=== PATIENT | female | born 1970 | race Two or more races ===

== ENCOUNTER 2018-02-01 04:09 | Emergency (ER) | payer OTHER ==
[~2018-02-01] VITALS: Ht 157.5 cm; Wt 66.4 kg
[2018-02-01] MEDS ORDERED: KETOROLAC 30 MG/1 ML IM ONE (05:00)
[2018-02-01] MEDS ORDERED: KETOROLAC 30 MG/1 ML ONE (05:13)
[2018-02-01 05:14] LABS: BASOPHILS # (AUTO) 0.02 x10^3/uL (0-0.1); BASOPHILS % (AUTO) 0 % (0-1); EOSINOPHILS # (AUTO) 0.01 x10^3/uL (0-0.4); EOSINOPHILS % (AUTO) 0 % (1-7); LYMPHOCYTES # (AUTO) 2.25 x10^3/uL (1-3.4); LYMPHOCYTES % (AUTO) 15 % (22-44); MD NO; MEAN CORPUSCULAR HEMOGLOBIN 32.9 pg (27.0-34.8); MEAN CORPUSCULAR HGB CONC 34.4 g/dL (32.4-35.8); MEAN CORPUSCULAR VOLUME 95.7 fL (80-100); MEAN PLATELET VOLUME 7.9 fL (7.4-10.4); MONOCYTES # (AUTO) 0.15 x10^3/uL (0.2-0.8); MONOCYTES % (AUTO) 1 % (2-9); NEUTROPHILS # (AUTO) 12.52 x10^3/uL (1.8-6.8); NEUTROPHILS % (AUTO) 84 % (42-75); PLATELET COUNT 235 x10^3/uL (130-400); RED BLOOD COUNT 4.78 x10^6/uL (3.82-5.3); RED CELL DISTRIBUTION WIDTH 13.7 % (9.6-15.2)
[2018-02-01 05:24] LABS: ALANINE AMINOTRANSFERASE 89 U/L (12-78); ALBUMIN 3.3 g/dL (3.4-5.0); ANION GAP 9 mmol/L (5-15); CALCIUM 8.1 mg/dL (8.5-10.1); CHLORIDE 104 mmol/L (98-107); CREATININE 0.57 mg/dL (0.55-1.02)
[2018-02-01 05:28] LABS: MICROSCOPIC AUTO
[2018-02-01 05:28] LABS: ALKALINE PHOSPHATASE 101 U/L (45-117); BILIRUBIN,TOTAL 0.9 mg/dL (0.2-1.0); TOTAL PROTEIN 7.6 g/dL (6.4-8.2)
[2018-02-01 05:30] LABS: CULTURE INDICATED? YES
[2018-02-01] MEDS ORDERED: CEFTRIAXONE 1,000 MG IM ONE (06:00)
[2018-02-01] MEDS ORDERED: CYCLOBENZAPRINE 10 MG TABLET PO ONE (06:00)
[2018-02-01] MEDS ORDERED: CYCLOBENZAPRINE 10 MG TABLET ONE (06:09)
[2018-02-01] MEDS ORDERED: CEFTRIAXONE 1,000 MG ONE (06:09)
[2018-02-01 06:15] VITALS: BP 109/80
== END 2018-02-01 06:33 | disposition home or self-care (01) ==
LOC: ED 06:21
DX: M54.5 Low back pain (principal); N39.0 Urinary tract infection, site not specified; D72.829 Elevated white blood cell count, unspecified
CPT/HCPCS: 36415; 74176; 80053; 81001; 84703; 85025; 87086; 96372; 99285; J0696; J1885